=== PATIENT | male | born 1955 | race Caucasian/White ===

== ENCOUNTER 2022-11-21 07:47 | Day surgery (SDC) | payer OTHER ==
[2022-11-21] MEDS ORDERED: Ringers Lactate 0 ML IV ONE (07:59)
[2022-11-21] MEDS ORDERED: CEFAZOLIN SODIUM 1 GM/VIAL ONE (07:59)
[2022-11-21] MEDS ORDERED: NA CHLORIDE 0.9% 1,000 ML ONE ×2 (08:07→11:15)
[2022-11-21] MEDS ORDERED: propofoL 200 MG/20 ML VIAL IV ONE (09:08)
[2022-11-21] MEDS ORDERED: ONDANSETRON 4 MG/2 ML VIAL ONE (09:09)
[2022-11-21] MEDS ORDERED: LIDOCAINE 2% MPF 5 ML VIAL ONE (09:09)
[2022-11-21] MEDS ORDERED: ROCURONIUM 50 MG/5 ML VIAL IV ONE (09:09)
[2022-11-21] MEDS ORDERED: FENTANYL CITR 250 MCG/5 ML ONE (09:09)
[2022-11-21] MEDS ORDERED: dexAMETHasone 10 MG/ML VIAL ONE (09:09)
[2022-11-21] MEDS ORDERED: MIDAZOLAM HCL 2 MG/2 ML INJ ONE (09:09)
[2022-11-21] MEDS ORDERED: LIDOCAINE 1% W/EPI 1:100,000 50 ML MDV ONE (09:23)
[2022-11-21] MEDS ORDERED: BACITRACIN OINTMENT 14 GM TUBE TOP ONE (09:23)
[2022-11-21] MEDS ORDERED: OXYMETAZOLINE HCL 0.05% 15ML NAS ONE (09:23)
[2022-11-21] MEDS ORDERED: NA CHLORIDE 0.9% 500 ML ONE (09:23)
[2022-11-21] MEDS ORDERED: NS 0.9% VIAL 10 ML ONE (11:13)
[2022-11-21] MEDS ORDERED: Phenylephrine HCl 10 MG/ML 1 ML VIAL ONE (11:13)
[2022-11-21] MEDS: MEPERIDINE HCL 25 MG/ML SYR ONE ×2 (11:59→12:04)
[2022-11-21] MEDS: MORPHINE 4 MG/ML SYR ONE ×2 (12:09→12:14)
[2022-11-21] MEDS ORDERED: HYDROCOD 2.5mg-ACETAMIN 108mg/5mL Soln ONE (13:00)
--- NOTE | 2022-11-21 13:46 | OP ---
Date of Procedure: 11/21/2022 Surgeon: MAYDA CARVAJAL Primary Care Physician: Unknown. Preoperative Diagnoses: 1.Bilateral umm-antral fistula. 2.Bilateral chronic maxillary sinusitis. Postoperative Diagnoses: 1.Bilateral umm-antral fistula. 2.Bilateral chronic maxillary sinusitis. Procedures: 1.Bilateral diagnostic sinus endoscopy with balloon sinuplasty of bilateral maxillary sinuses with t he Acclarent balloon system. 2.Bilateral maxillary sinus lavage. 3.Repair of bilateral umm-antral fistula with pedicled buccal flaps. Anesthesia: General endotracheal anesthesia was administered. I also infiltrated approximately 10-1 5 mL of 1% lidocaine with 1:100,000 epinephrine at the bilateral umm-antral fistula sites as well as the uncinate processes and axilla of bilateral middle turbinates in the nose. I also then used Afrin -soaked nasal pledgets for vasoconstriction and decongestion. Estimated Blood Loss: Approximately 10-15 mL. Specimens: None. Findings: 1.Bilateral mucoid effusions - maxillary sinuses; right deviated septum - moderate. 2.Large left umm-antral fistula and a small 2 mm fistula located in the right upper gingiva. Complications: None. Disposition: Stable. The patient tolerated the procedure well. Indication For Procedure: The patient is a pleasant 67-year-old male, who presented to my outpatient office with communication from the oral cavity to bilateral maxillary sinuses, umm-antral fistula we re confirmed in my office. He also had significant mucoid secretions involving bilateral maxillary s inuses. These are indications to bring the patient to the operative suite for the above-mentioned pr ocedures. He understood, all questions were answered. Risks versus benefits and complications were explained in detail and a consent form was signed, which placed on the chart. Description Of Procedure: The patient was transferred from the preoperative holding area to the oper ative suite by Department of Anesthesia, placed on the operating table supine, sedated and intubated in normal fashion. Table was rotated 180 degrees and head rest was placed. Afrin-soaked nasal pledg ets were introduced into bilateral nasal cavities. I then infiltrated approximately 8-10 mL of 1% li docaine with 1:100,000 epinephrine at the incisional sites where the right buccal flaps were located. The patient was then prepped and draped. Afrin-soaked nasal pledgets were removed from the patient's nasal cavity and I utilized a 0-degree ri gid nasal endoscope to perform the balloon sinuplasty. I infiltrated approximately 2-4 mL of 1% lido chip with 1:100,000 epinephrine at bilateral middle turbinate axilla and uncinate processes mucosa. I then medialized the left middle turbinate with a [place] to expose the left maxillary sinus ostial o pening. I reflected the uncinate process mucosa anteriorly and then I was able to easily insert the Acclarent balloon into the left maxillary sinus and I inflated twice to 12 mmHg and then deflated the balloon and retracted the lighted guidewire. I then lavaged the left maxillary sinus with approxima tely 100 mL of sterile saline. I then suctioned the residual saline with an olive tip suction. Next, I repeated this procedure on the right side; however, the patient had significantly deviated se ptum. Thus, I had to lateralize the inferior turbinates somewhat and medialize the inferior septum i n order to gain access to the right maxillary sinus ostial opening. Once I was able to locate it, I then used a ball probe to confirm and then reflected the uncinate process mucosa anteriorly. I then inserted the balloon and confirmed with lighted guidewire. I then inserted the actual balloon into t he sinus and dilated the opening to 12 mmHg twice and then deflated the balloon and then retracted th e lighted guidewire. I then lavaged the right maxillary sinus with 100 mL with sterile saline and re moved the residual contents with the balloon 1. I then removed the balloon. Afrin-soaked nasal pled gets were returned to the nose. I then turned my attention to bilateral buccal flaps whereby I incised a pedicle flap involving bucca l fat and the overlying mucosa. These were created with a #15 blade scalpel, small curved hemostats. Suction Bovie was used for hemostasis. Once I was able to access and obtain healthy pedicle flaps, I sutured them after elevating the gingival mucosa around the fistula. I then sutured the buccal fa t and to place over the fistula and then the mucosa was reapproximated and I used a 3-0 Vicryl on an SH1 needle in simple interrupted and continuous running fashion. He tolerated the procedure well, wi ll be discharged home on antibiotics and analgesic medication, will follow up in 1-2 weeks or sooner if needed. LEON/JOSE RAUL Voice ID: [id number] Report ID: [id number]
[2022-11-21 14:03] VITALS: BP 143/73; TEMP 97.4; O2SAT 98
== END 2022-11-21 14:00 | disposition home or self-care (01) ==
LOC: OR 07:47
PROVIDERS: ATTEND Otolaryngology Facial Plastic Surgery
PROC: 09QQ4ZZ Repair Right Maxillary Sinus, Percutaneous Endoscopic Approach (ICD-10-PCS; 2022-11-21)
PROC: 09Q Ear, Nose, Sinus, Repair (ICD-10-PCS; 2022-11-21)
PROC: 09Q Ear, Nose, Sinus, Repair (ICD-10-PCS; 2022-11-21)
PROC: 3E1F78Z Irrigation of Respiratory Tract using Irrigating Substance, Via Natural or Artificial Opening (ICD-10-PCS; 2022-11-21)
PROC: 09QR4ZZ Repair Left Maxillary Sinus, Percutaneous Endoscopic Approach (ICD-10-PCS; principal; 2022-11-21 09:20)
DX: J32.0 Chronic maxillary sinusitis (principal)
CPT/HCPCS: 82947; A4216; J0690; J1100; J2001; J2175; J2250; J2370; J2405; J2704; J3010; J7030; J7040; J7120